=== PATIENT | female | born 1960 | race Caucasian/White ===

== ENCOUNTER → 2019-09-08 | Outpatient (CLI) | payer BC | LOC: MAMMO 08:21 | DX: Z12.31 Encounter for screening mammogram for malignant neoplasm of breast (principal) ==

== ENCOUNTER → 2020-07-26 | Outpatient (CLI) | payer BC | LOC: RAD 09:53 | DX: M51.16 Intervertebral disc disorders with radiculopathy, lumbar region (principal) ==

== ENCOUNTER → 2020-09-11 | Outpatient (CLI) | payer BC | LOC: MAMMO 09:10 | DX: Z12.31 Encounter for screening mammogram for malignant neoplasm of breast (principal); M85.80 Other specified disorders of bone density and structure, unspecified site ==

== ENCOUNTER 2020-09-19 09:00 | Outpatient (RCR) | payer BC | END 2020-09-24 | disposition home or self-care (01) | LOC: PT | DX: M54.16 Radiculopathy, lumbar region (principal) | CPT/HCPCS: G0283-GP ==

== ENCOUNTER → 2021-01-21 | Outpatient (REF) ==
[~2021-01-21] MED LIST: ATORVASTATIN CA10 MG PO; HYGROTON 2525 MG/TAB PO; LISINOPRIL10 MG PO; MELOXICAM7.5 MG PO; OXYBUTYNIN CHLO10 MG PO; POTASSIUM CHLO10 ME7 PO; TRAMADOL 50 MG TAB PO; VITAMIN D250 MC1 PO
== END ==
LOC: LAB 09:57
DX: I10 Essential (primary) hypertension (principal); E55.9 Vitamin D deficiency, unspecified

== ENCOUNTER → 2021-01-31 | Outpatient (CLI) | payer BC | LOC: RAD 18:25 | DX: M54.42 Lumbago with sciatica, left side (principal); N28.1 Cyst of kidney, acquired; M48.061 Spinal stenosis, lumbar region without neurogenic claudication; M51.36 Other intervertebral disc degeneration, lumbar region; M71.38 Other bursal cyst, other site ==

== ENCOUNTER → 2021-02-04 | Outpatient (REF) | LOC: LAB 12:05 | DX: N28.89 Other specified disorders of kidney and ureter (principal) ==

== ENCOUNTER → 2021-02-05 | Outpatient (CLI) | payer BC | LOC: RAD 08:53 | DX: N28.89 Other specified disorders of kidney and ureter (principal); K76.9 Liver disease, unspecified | CPT/HCPCS: Q9967 ==

== ENCOUNTER 2021-06-10 10:29 | Emergency (ER) | payer BC ==
[~2021-06-10] VITALS: Ht 167.6 cm; Wt 72.1 kg
[2021-06-10] MEDS ORDERED: MELOXICAM7.5 MG PO (10:52)
[2021-06-10] MEDS ORDERED: POTASSIUM CHLO10 ME7 PO (10:52)
[2021-06-10] MEDS ORDERED: OXYBUTYNIN CHLO10 MG PO (10:52)
[2021-06-10] MEDS ORDERED: HYGROTON 2525 MG/TAB PO (10:53)
[2021-06-10] MEDS ORDERED: ATORVASTATIN CA10 MG PO (10:53)
[2021-06-10] MEDS ORDERED: TRAMADOL 50 MG TAB PO (10:54)
[2021-06-10] MEDS ORDERED: LISINOPRIL10 MG PO (10:54)
[2021-06-10] MEDS ORDERED: VITAMIN D250 MC1 PO (10:55)
[2021-06-10 11:18] LABS: BASO # 0.01 (0.02-0.10); HEMATOCRIT 43.8 % (37.0-47.0); HEMOGLOBIN 14.6 g/dL (12.5-16.0); LYMPH# 0.71 (1.50-4.00); MEAN CELL VOLUME 84 fl (78-100); MEAN CORPUSCULAR HEMOGLOBIN 28 pg (27-31); MEAN CORPUSCULAR HGB CONC 33 g/dL (33-37); MEAN PLATELET VOLUME 10.4 fl (7.4-10.4); MONO # 0.25 (0.20-0.80); NEU # 4.08 (1.40-6.50); PLATELET COUNT 175 K/mm3 (130-400); RED BLOOD COUNT 5.19 M/mm3 (4.10-5.30); WHITE BLOOD COUNT 5.1 K/mm3 (4.8-10.8)
[2021-06-10 11:29] LABS: ALBUMIN 3.8 g/dL (3.4-4.8)
[2021-06-10 11:30] LABS: SODIUM 135 mmol/L (136-145)
[2021-06-10 11:32] LABS: D-DIMER 0.63 mg/L FEU (0.15-0.50); GLUCOSE 113 mg/dL (65-105); TOTAL PROTEIN 6.5 g/dL (6.2-8.1)
[2021-06-10 11:33] LABS: CARBON DIOXIDE 24 mmol/L (23-31)
[2021-06-10 11:34] LABS: TOTAL BILIRUBIN 0.7 mg/dL (0.2-1.2)
[2021-06-10 11:37] LABS: AST-SGOT 61 U/L (5-34); POTASSIUM 2.8 mmol/L (3.5-5.1)
[2021-06-10 11:38] LABS: ALT/SGPT 44 U/L (0-55)
[2021-06-10 17:51] VITALS: BP 106/69
== END 2021-06-10 17:47 | disposition home or self-care (01) ==
LOC: ED 10:29
PROVIDERS: Nurse Practitioner
DX: U07.1 COVID-19 (principal); E78.5 Hyperlipidemia, unspecified; I10 Essential (primary) hypertension; E66.9 Obesity, unspecified; Z79.899 Other long term (current) drug therapy; Z68.25 Body mass index [BMI] 25.0-25.9, adult
CPT/HCPCS: J2405; J3480; J7030; Q0244; Q9967

== ENCOUNTER → 2021-06-14 | Outpatient (CLI) | payer BC ==
[2021-06-14 09:22] LABS: POTASSIUM 3.1 mmol/L (3.5-5.1)
[2021-06-14 09:23] LABS: CALCIUM 9.5 mg/dL (8.3-10.5)
== END ==
LOC: LAB 08:59
PROVIDERS: Physician Assistant
DX: E87.6 Hypokalemia (principal)

== ENCOUNTER → 2021-06-18 | Outpatient (REF) | LOC: LAB 09:22 | DX: E87.6 Hypokalemia (principal) ==

== ENCOUNTER → 2021-08-29 | Outpatient (CLI) | payer BC | LOC: RAD 08:15 | DX: C64.2 Malignant neoplasm of left kidney, except renal pelvis (principal); K76.89 Other specified diseases of liver; Z90.5 Acquired absence of kidney | CPT/HCPCS: Q9967 ==

== ENCOUNTER → 2021-09-17 | Outpatient (CLI) | payer BC | LOC: MAMMO 13:00 | DX: Z12.31 Encounter for screening mammogram for malignant neoplasm of breast (principal) ==

== ENCOUNTER → 2022-03-19 | Outpatient (REF) | LOC: LAB 08:00 | DX: N28.9 Disorder of kidney and ureter, unspecified (principal) ==

== ENCOUNTER → 2022-04-04 | Outpatient (CLI) | payer BC | LOC: RAD 07:51 | DX: C64.2 Malignant neoplasm of left kidney, except renal pelvis (principal) ==

== ENCOUNTER → 2022-04-28 | Day surgery (SDC) | payer BC | LOC: MSO 07:41 | DX: Z12.11 Encounter for screening for malignant neoplasm of colon (principal) | CPT/HCPCS: 00812; J2704; J7120 ==

== ENCOUNTER 2022-05-06 10:58 | Outpatient (RCR) | payer BC | END 2022-05-21 | disposition home or self-care (01) | LOC: PT | DX: M54.16 Radiculopathy, lumbar region (principal) ==

== ENCOUNTER → 2024-03-18 | Outpatient (CLI) | payer BC | LOC: RAD 07:44 | DX: C64.9 Malignant neoplasm of unspecified kidney, except renal pelvis (principal) ==

== ENCOUNTER → 2024-10-07 | Outpatient (CLI) | payer BC | LOC: MAMMO 08:58 | DX: Z12.31 Encounter for screening mammogram for malignant neoplasm of breast (principal) ==